=== PATIENT | female | born 1960 | race Caucasian/White ===

== ENCOUNTER 2025-01-23 09:21 | Emergency (ER) | payer OTHER, SELFPAY ==
[2025-01-23 09:34] VITALS: BP 145/91
--- NOTE | 2025-01-23 10:56 | ED.GENMED ---
History of Present Illness
General
Chief Complaint: Nose Bleed
Source: patient
Exam Limitations: none
Time Seen by Provider: 01/23/25 10:34
History of Present Illness
History of Present Illness:
See MDM
Past History
Past History
ED Past Medical History: None
ED Past Surgical History: None
Social History
Tobacco: Non-smoker
Alcohol: None
Phy Exam
Physical Exam
Physical Exam:
See MDM
Course
Orders/Labs/Results
Orders:
Orders
01/23/25 11:18
Hydrocodone 5/APAP 325 [[place] 5/325] 1 tablet PO NOW STA
Vital Signs
Initial and Last Documented VS:
Initial Vital Signs
Temp Pulse Resp BP Pulse Ox
98 F 88 16 145/91 97
01/23/25 09:34 01/23/25 09:34 01/23/25 09:34 01/23/25 09:34 01/23/25 09:34
Last Documented Vital Signs
Temp Pulse Resp BP Pulse Ox
98 F 88 16 145/91 97
01/23/25 09:34 01/23/25 09:34 01/23/25 09:34 01/23/25 09:34 01/23/25 09:34
Procedures
Nosebleed
Drug treatment: none
Treatment: other (Anterior balloon)
Post treatment bleeding: none- good control
MDM/Problems Addressed
Differential Diagnosis Includes:
HPI and MDM Narrative:
64-year-old female presenting for evaluation of right sided nosebleeding. Patient had an episode recently and she saw ENT and had it cauterized. The bleeding came on randomly earlier today. She denies any trauma. She states she has had recent
blood work showing no coagulation issues. Patient denies being on blood thinners.
On my exam, she has oozing to posterior aspect of right nasal septum. Given the active oozing in the location of the bleeding, I cannot reliably control it with silver nitrate. Patient is requesting Rhino Rocket.
Physical exam
General: Well appearing and non-toxic
HEENT: protecting airway. Bleeding from posterior aspect of R nasal septum
Neck: appears supple
CV: No evidence of cyanosis
Resp: No accessory muscle use
Abd: Non-distended
Extremities: No deformities
Neuro: alert
Psych: Normal affect
Skin: Intact
Problems Addressed including Acute and Chronic Conditions affecting care:
1. Epistaxis
Acuity: acute
Prognosis: stable
Details: Patient requiring Rhino Rocket with good blood control
Updates
Given the persistent oozing, the packing was removed and replaced with new packing which helped. Will write for Augmentin to take if the packing needs to be in for more than 3 days.
They are from out of town and state they are going to follow-up with ENT when they get to their vacation home
Differential Diagnosis (but not limited to): Anterior epistaxis, posterior epistaxis
Testing considered: Blood work
Drug therapy (if applicable): OTC meds, please see d/c instruction regarding Rx drugs
Amount and/or Complexity of Data Reviewed
Clinical info obtained from: Patient
External data reviewed: N/A
Labs I independently reviewed (but not limited to): N/A
Radiology: N/A
Pulse Ox: not hypoxic
EKG independently reviewed: N/A
Nail Expert: N/A
Critical Care: N/A
Risk of Complication:
Social Determinants of health: Good social support
Discussed with other providers: N/A
Escalation of Care includes Admit/Obs: After being observed in the Emergency Department, pt stable for discharge.
Occasional wrong word or 'sound a like' substitutions may have occurred due to the inherent limitations of voice recognition software. Read the chart carefully and recognize, using context, where substitutions have occurred.
*Critical Care Note
Total Time (30-74mins, 75-104mins- exclusive of procedures): Not Applicable
ED Attending Note
-
Portions of this chart may have been created with voice recognition software.� Occasional wrong word or��sound alike� substitutions may have occurred due to the inherent limitations of voice recognition software.
Discharge Plan
Departure
Patient Disposition: Home (Routine Discharge)
Date of Disposition: 01/23/25
Time of Disposition: 11:19
Patient with high blood pressure during this ER visit?: Yes
Discharge Problem:
Acute anterior epistaxis
Instructions: Nosebleeds (DC), BLOOD PRESSURE
Prescriptions:
New
amoxicillin-pot clavulanate 875-125 mg tablet
1 tab PO BID Qty: 14 0RF
hydrocodone-acetaminophen 5-325 mg tablet
1 tab PO BID PRN (Reason: pain) Qty: 14 0RF
Referrals:
UNKNOWN - PT DOES,NOT KNOW [Family Provider] -
Activity Restrictions/Additional Instructions:
Please return for worsening symptoms. Please have ENT evaluate the nosebleed to remove the packing. If the packing is going to stay for more than 3 days, please start the Augmentin.
Interventions
Interventions:
*Risk Screen - Suicide Last Done: 01/23/25 09:36
*General Assessment Last Done: 01/23/25 10:04
*Neglect/Abuse Screening Last Done: 01/23/25 09:36
*ED- Fall Risk Assessment Last Done: 01/23/25 10:04
*ED COVID-19 Vaccine History Last Done: 01/23/25 10:04
ED-EENT Assessment Last Done: 01/23/25 10:04
Discharge Date and Time
Print Language: WELSH
[2025-01-23] MEDS: NORCO 5/325 1 TABLET PO (11:21)
[2025-01-23 11:39] VITALS: BP 141/89
== END 2025-01-23 11:41 | disposition home or self-care (01) ==
LOC: EMR 09:21
PROVIDERS: EMERGENCY PHYSICIAN Student in an Organized Health Care Education/Training Program
DX: R04.0 Epistaxis (principal)
CPT/HCPCS: 99282; 30901